=== PATIENT | female | born 2000 | race Two or more races ===

== ENCOUNTER 2022-11-04 10:16 | Outpatient (REF) | payer OTHER, SELFPAY ==
[2022-11-04 14:17] LABS: MANUAL DIFF FLAG NO
[2022-11-04 14:30] LABS: Basophils Absolute Auto 0.1 X10*3/uL (0.0-0.2); Basophils Percent Auto 0.8 % (0-2); Eosinophils Absolute Auto 0.3 X10*3/uL (0.0-0.4); Eosinophils Percent Auto 4.8 % (0-4); Hematocrit 39.6 % (37.0-47.0); Hemoglobin 12.5 g/dl (12.0-16.0); Imm Gran Abs Auto 0.02 X10*3/uL (0.00-0.03); Imm Gran Pct Auto 0.3 % (0.0-0.4); Lymphocytes Absolute Auto 2.2 X10*3/uL (1.2-4.9); Lymphocytes Percent Auto 35.9 % (20-40); Mean Corpuscular HGB Conc 31.6 g/dl (31.0-35.0); Mean Corpuscular Hemoglobin 28.9 pg (27.0-33.0); Mean Corpuscular Volume 91.5 fL (80.0-98.0); Mean Platelet Volume 12.3 fL (9.4-12.3); Monocytes Absolute Auto 0.6 X10*3/uL (0.1-1.2); Monocytes Percent Auto 9.7 % (2-11); Neutrophils Percent Auto 48.5 % (45-73); Platelet Count 253 X10*3/uL (160-400); Red Blood Count 4.33 X10*6/uL (4.20-5.50); Red Cell Distribution Width 12.5 % (11.0-16.0); White Blood Count 6.1 X10*3/uL (4.8-10.8)
[2022-11-04 14:54] LABS: Alanine Aminotransferase 15 U/L (0-31); Aspartate Amino Transferase 14 U/L (5-31); Blood Urea Nitrogen 8 mg/dL (9-16); Estimated Glomerular Filt Rate > 60
[2022-11-04 15:24] LABS: Erythrocyte Sedimentation Rate 5 MM/HR (0-20)
== END 2022-11-04 10:17 | disposition home or self-care (01) ==
LOC: HO.WFDLDS 10:16
PROVIDERS: Visit Provider Pediatrics Pediatric Rheumatology
DX: M08.3 Juvenile rheumatoid polyarthritis (seronegative) (principal)
CPT/HCPCS: 36415; 82565; 84450; 84460; 84520; 85025; 85652

== ENCOUNTER 2024-09-29 09:56 | Outpatient (AMB) | payer OTHER, SELFPAY ==
--- NOTE | 2024-09-29 10:01 | A.OFFPC_ITS ---
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 Rheumatoid arthritis-On tylenol as needed. Following with Dr Bourgeois in [place] Decreased appetite. Did just have GI illness last week. Has lost 20 pounds recently, unintentional 10 pounds with recent GI bug. Admits to few month history of decreased appetite. Does endorse some mild depressive symptoms and would be interested in SSRI Needs refill of OCP until sees offshore diver ROS see HPI PHYSICAL EXAM: GENERAL: Alert and oriented x 3. NAD EYES: EOMI. Anicteric. HENT: Moist mucous membranes. No scleral icterus. No cervical lymphadenopathy. LUNGS: Clear to auscultation bilaterally. CARDIOVASCULAR: Regular rate and rhythm. No murmur. No JVD. ABDOMEN: Soft, non-tender +bs EXTREMITIES: No edema. Non-tender. SKIN: No rashes or lesions. Warm. NEUROLOGIC: No focal neurological deficits. CN II-XII grossly intact PSYCHIATRIC: Cooperative. Appropriate mood and affect [facility] [place] Medical History Selective mutism Arthritis Surgical History No pertinent past surgical history Family History Mother Mental health disorder Hypertension Asthma Father Mental health disorder Maternal Grandmother Diabetes Arthritis Paternal Grandmother Arthritis Social History Household Members: Family Housing: House Are you a primary infant caregiver to a significant other at home: No Do you presently have visiting nurse or other home services: No Alcohol intake: current Alcohol intake frequency: a few times a month Patient Tobacco Use Status: Never used Tobacco e-Cigarette/Vaping Use: Currently Using Second Hand Smoke Exposure: No service: No Current occupational status: employed Current occupation: food worker Cognitive needs: No Hearing needs: No Vision needs: Yes (wear glasses) Questionnaire PHQ-9 Over the last 2 weeks, how often have you been bothered by any of the following problems? 70665 - PHQ-9 Billing: Patient declined-do not bill Source: Developed by Drs. Saeed Crockett, Zandra Zaman, Harjit Fontaine and colleagues, with an educational sara from [employer]. Thrive Questionnaire Date Thrive assessed: 09/29/24 I am a: Patient What is your living situation today?: I have a steady place to live Within the past 12 months, did the food you bought not last and you didn't have the money to get more?: I choose not to answer this question Within the past 12 months, did you worry whether your food would run out before you got money to buy more?: I choose not to answer this question Do you have trouble paying for medicines?: No Do you have trouble getting transportation to medical appointments?: No Do you have trouble paying your heating and electricity bill?: No Do you have trouble taking care of your child, family member or friend?: No Do you have trouble with day-to-day activities such as bathing, preparing meals, shopping, managing finances, etc.?: I choose not to answer this question Are you currently unemployed and looking for a job?: No Are you interested in more education?: Yes THRIVE Score: 0 AUDIT C Alcohol Use Questionnaire (AUDIT-C) 1. How often do you have a drink containing alcohol?: Monthly or less 2. How many drinks containing alcohol do you have on a typical day when you are drinking?: 1 or 2 3. How often do you have six or more drinks on one occasion?: Never Total Score: 1 REBECCA-7 AMB Questionnaire REBECCA-7 Date REBECCA - 7 assessed: 12/27/24 Feeling nervous, anxious, or on edge: 2 = More than half the days Not being able to stop or control worryin = More than half the days Worrying too much about different things: 3 = Nearly every day Trouble relaxin = More than half the days Being so restless that it is hard to sit still: 1 = Several days Becoming easily annoyed or irritable: 3 = Nearly every day Feeling afraid as if something awful might happen: 2 = More than half the days Total REBECCA-7 score (0-4 normal; 5-9 mild; 10-14 moderate; 15-21 severe): 15 Source: Developed by Drs. Saeed Crockett, Zandra Zaman, Harjit Fontaine and colleagues, with an educational sara from [employer]. REBECCA-7 Assessment Billing REBECCA-7 Assessment Tool: REBECCA-7 Assessment 02534 Physical exam (Primary Care) Vital Signs: Last Vital Signs Pulse 87 09/29/24 10:10 Resp 12 09/29/24 10:10 BP 98/62 09/29/24 10:10 Pulse Ox 100 09/29/24 10:10 Oxygen Delivery Method Room Air 09/29/24 10:10 BMI result Body Mass Index 19.4 Tobacco/Smoking Status: Tobacco use Status Tobacco use date assessed 09/29/24 09/29/24 10:11 Patient Tobacco Use Status Never used Tobacco 09/29/24 10:11 e-Cigarette/Vaping Use Currently Using 09/29/24 10:11 Thrive Assessment: Date of Thrive Assessment Date Thrive assessed 09/29/24 09/29/24 10:03 Coding Level of Care Code New Pt Level 4 (89928) Complex EM visit Add On G2211 Diagnoses Encounter to establish care Z76.89 Current moderate episode of major depressive disorder without prior episode F32.1 Active/Remission status: currently active Depression Type: major depressive disorder Major depression episode severity: moderate Major depression recurrence: single episode Rheumatoid arthritis involving multiple sites with positive rheumatoid factor M05.79 Rheumatoid arthritis location: multiple sites Rheumatoid factor presence: with rheumatoid factor Additional Codes REBECCA-7 Assessment Billing - REBECCA-7 Assessment Tool: REBECCA-7 Assessment 22662 ([id number]) Assessment & Plan Assessment & Plan (1) Encounter to establish care: Code(s): Z76.89 - Persons encountering health services in other specified circumstances Category: Medical Plan: 23 year old to establish care. past medical, surgical, social and family history reviewed. Chart updated (2) Depression: Code(s): F32.A - Depression, unspecified Category: Medical Qualifiers: Active/Remission status: currently active Depression Type: major depressive disorder Major depression episode severity: moderate Major depression recurrence: single episode Qualified Code(s): F32.1 - Major depressive disorder, single episode, moderate Plan: start paxil given depression and weight loss (3) Rheumatoid arthritis: Code(s): M06.9 - Rheumatoid arthritis, unspecified Category: Medical Qualifiers: Rheumatoid arthritis location: multiple sites Rheumatoid factor presence: with rheumatoid factor Qualified Code(s): M05.79 - Rheumatoid arthritis with rheumatoid factor of multiple sites without organ or systems involvement Plan: continue follow up with rheumatology Orders: Orders HCG Quantitative 09/29/24 F32.A - Depression, unspecified, M06.9 - Rheumatoid arthritis, unspecified, R63.4 - Abnormal weight loss Complete Blood Count Auto Diff 09/29/24 F32.A - Depression, unspecified, M06.9 - Rheumatoid arthritis, unspecified, R63.4 - Abnormal weight loss Comprehensive Met. Panel 09/29/24 F32.A - Depression, unspecified, M06.9 - Rheumatoid arthritis, unspecified, R63.4 - Abnormal weight loss TSH reflex Free T4 09/29/24 F32.A - Depression, unspecified, M06.9 - Rheumatoid arthritis, unspecified, R63.4 - Abnormal weight loss Hemoglobin A1c 09/29/24 F32.A - Depression, unspecified, M06.9 - Rheumatoid arthritis, unspecified, R63.4 - Abnormal weight loss Medications: New paroxetine HCl (Paxil) 10 mg PO DAILY 90 tabs 3RF norgestimate-ethinyl estradiol 0.25-35 mg-mcg (Sprintec (28)) 1 tab PO DAILY 84 tabs 3RF
[2024-09-29 10:10] VITALS: BP 98/62; PULSE 87; RESP 12; O2SAT 100; BMI 19.4
== END 2024-09-29 10:33 | disposition home or self-care (01) ==
PROVIDERS: PCP Internal Medicine; Visit Provider Internal Medicine
DX: Z76.89 Persons encountering health services in other specified circumstances (principal); F32.1 Major depressive disorder, single episode, moderate; M05.79 Rheumatoid arthritis with rheumatoid factor of multiple sites without organ or systems involvement

== ENCOUNTER → 2024-09-29 09:56 | Outpatient (BNVA) | payer OTHER, SELFPAY | PROVIDERS: PCP Internal Medicine; Visit Provider Internal Medicine | DX: Z76.89 Persons encountering health services in other specified circumstances (principal); F32.1 Major depressive disorder, single episode, moderate; M05.79 Rheumatoid arthritis with rheumatoid factor of multiple sites without organ or systems involvement; R63.0 Anorexia | CPT/HCPCS: 96127; 99202 ==

== ENCOUNTER 2024-09-29 10:52 | Outpatient (REF) | payer OTHER, SELFPAY ==
--- OUTSIDE RECORDS SUMMARY | 2024-09-29 10:54 | XMS_ITS ---
Author Name [facility] Organization Unknown History of Medication Use Medication Directions Dispensed Refills Start Date End Date Status ondansetron (ZOFRAN-ODT) 4 MG disintegrating tablet Take 4 mg by mouth 4 active ibuprofen (MOTRIN) 200 MG tablet Take 400 mg by mouth 4 active acetaminophen 325 mg Capsule Take 650 mg by mouth 4 active EPINEPHrine (EPIPEN) 0.3 mg/0.3 mL injection INJECT CONTENTS OF 1 PEN NEEDED FOR ALLERGIC REACTION 3 active famotidine (PEPCID) 10 MG tablet TAKE 1 TABLET BY MOUTH TWICE DAILY 3 aborted escitalopram oxalate (LEXAPRO) 20 MG tablet Take 20 mg by mouth 3 active escitalopram oxalate (LEXAPRO) 10 MG tablet Take 10 mg by mouth daily 3 aborted famotidine (PEPCID) 10 MG tablet Take 10 mg by mouth 3 aborted cephalexin (KEFLEX) 500 MG capsule TAKE 1 CAPSULE BY MOUTH 4 TIMES DAILY FOR 7 DAYS 4 aborted escitalopram oxalate (LEXAPRO) 10 MG tablet Take 10 mg by mouth daily 3 active UNKNOWN TO PATIENT 2 days ago started a n anti-depressant - forgot the name. 3 aborted norgestimate-ethin yl estradioL (ORTHO TRI-CYCLEN,TRI-SPR INTEC) 0.18/0.215/0.25 mg-35 mcg (28) per tablet Take 1 tablet by mouth 3 aborted loratadine (CLARITIN) 10 mg tablet Take 10 mg by mouth 3 aborted EPINEPHrine (EPIPEN) 0.3 mg/0.3 mL injection Inject 0.3 mg into the muscle 3 aborted TRI-SPRINTEC, 28, 0.18/0.215/0.25 mg-35 mcg (28) per tablet Take 1 tablet by mouth daily 2 active EPINEPHrine (EPIPEN) 0.3 mg/0.3 mL injection Inject 0.3 mg into the muscle 3 aborted naproxen (NAPROSYN) 375 MG tablet Take 1 tablet (375 mg) by mouth 2 (two) times daily with meals 4 active lidocaine 10 mg/mL (1 %) injection 2 mL 2 mL (0.0334 mL/kg), Subcutaneous, Once, On [facility] 07/30/22 at 1600, For 1 doseHIGH ALERT MEDICATIONRadiology 2 completed ketoconazole (NIZORAL) 2 % shampoo USE TOPICALLY TO AFFECTED AREA(S) DAILY NEEDED FOR 3 DAYS. CAN RE START IF RASH RECURS 2 aborted naproxen sodium (ANAPROX) 220 MG tablet Take 220 mg by mouth as needed 2 active SPRINTEC, 28, 0.25-35 mg-mcg per tablet Take 1 tablet by mouth daily 3 aborted acetaminophen (TYLENOL) 325 MG tablet Take 325 mg by mouth every 6 (six) hours as needed for Pain 2 active TRI-SPRINTEC, 28, 0.18/0.215/0.25 mg-35 mcg (28) per tablet Take 1 tablet by mouth daily 3 aborted naproxen (NAPROSYN) 375 MG tablet Take 1 tablet (375 mg) by mouth 2 (two) times daily with meals 4 active lidocaine 10 mg/mL (1 %) injection 2 mL 2 mL (0.0334 mL/kg), Subcutaneous, Once, On [facility] 07/30/22 at 1600, For 1 doseHIGH ALERT MEDICATIONRadiology 2 completed ketoconazole (NIZORAL) 2 % shampoo USE TOPICALLY TO AFFECTED AREA(S) DAILY NEEDED FOR 3 DAYS. CAN RE START IF RASH RECURS 2 aborted ADALIMUMAB 40 mg/0.4 mL pen INJECT 40 MG SUBCUTANEOUSLY EVERY 14 DAYS 2 active ADALIMUMAB 40 mg/0.4 mL pen INJECT 40 MG SUBCUTANEOUSLY EVERY 14 DAYS 3 active norgestimate-ethin yl estradioL (ORTHO TRI-CYCLEN,TRI-SPR INTEC) 0.18/0.215/0.25 mg-35 mcg (28) per tablet Take 1 tablet by mouth 3 aborted loratadine (CLARITIN REDITABS) 10 mg dissolvable tablet Take 10 mg by mouth 3 active EPINEPHrine (EPIPEN) 0.3 mg/0.3 mL injection INJECT CONTENTS OF 1 PEN NEEDED FOR ALLERGIC REACTION 3 active fluconazole (DIFLUCAN) 150 MG tablet Take 150 mg by mouth 3 aborted loratadine (CLARITIN REDITABS) 10 mg dissolvable tablet Take 10 mg by mouth 3 active triamcinolone hexacetonide (ARISTOSPAN) injection 40 mg 40 mg (0.655 mg/kg), Intra-articular, Once, On [facility] 07/30/22 at 1430, For 1 doseSahke Well before useProcedural Services 2 completed SPRINTEC, 28, 0.25-35 mg-mcg per tablet Take 1 tablet by mouth daily 3 active TRI-SPRINTEC, 28, 0.18/0.215/0.25 mg-35 mcg (28) per tablet TAKE 1 TABLET BY MOUTH ONCE DAILY 2 active fluticasone propionate (FLONASE) 50 mcg/actuation topical by Nasal route 3 aborted bupivacaine PF (MARCAINE) 0.5 % (5 mg/mL) injection 2 mL 2 mL (0.0334 mL/kg), Intra-articular, Once, On [facility] 07/30/22 at 1600, For 1 dose, Radiology 2 completed escitalopram oxalate (LEXAPRO) 5 MG tablet Take 5 mg by mouth daily 3 aborted naproxen (NAPROSYN) 500 MG tablet Take 1 tablet (500 mg) by mouth 2 (two) times daily with meals 2 active fluticasone propionate (FLONASE) 50 mcg/actuation nasal spray USE 1 SPRAY(S) IN EACH NOSTRIL TWICE DAILY 3 active ondansetron (ZOFRAN-ODT) 4 MG disintegrating tablet DISSOLVE 1 TABLET IN MOUTH EVERY 8 HOURS NEEDED FOR NAUSEA AND VOMITING FOR 3 DAYS 4 active adalimumab citrate-free (HUMIRA CF) 40 mg/0.4 mL pen Inject 0.4 mLs (40 mg) into the skin every 14 (fourteen) days 2 active acetaminophen (TYLENOL) 325 MG tablet Take 325 mg by mouth every 6 (six) hours as needed for Pain 3 active naproxen (NAPROSYN) 375 MG tablet Take 1 tablet (375 mg) by mouth 2 (two) times daily with meals 2 active loratadine (CLARITIN) 10 mg tablet Take 10 mg by mouth daily 3 aborted escitalopram oxalate (LEXAPRO) 5 MG tablet Take 5 mg by mouth daily 3 active Problems Problem Status Onset Date Problem Type Date of Resolution Source 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
[2024-09-29 14:15] LABS: MANUAL DIFF FLAG NO
[2024-09-29 14:20] LABS: Basophils Percent Auto 0.6 % (0-2); Eosinophils Absolute Auto 0.1 X10*3/uL (0.0-0.4); Eosinophils Percent Auto 1.5 % (0-4); Hematocrit 38.9 % (37.0-47.0); Hemoglobin 12.5 g/dl (12.0-16.0); Imm Gran Abs Auto 0.01 X10*3/uL (0.00-0.03); Imm Gran Pct Auto 0.2 % (0.0-0.4); Lymphocytes Absolute Auto 1.7 X10*3/uL (1.2-4.9); Lymphocytes Percent Auto 32.3 % (20-40); Mean Corpuscular HGB Conc 32.1 g/dl (31.0-35.0); Mean Corpuscular Hemoglobin 29.3 pg (27.0-33.0); Mean Corpuscular Volume 91.1 fL (80.0-98.0); Mean Platelet Volume 11.4 fL (9.4-12.3); Monocytes Absolute Auto 0.4 X10*3/uL (0.1-1.2); Monocytes Percent Auto 7.5 % (2-11); Neutrophils Percent Auto 57.9 % (45-73); Platelet Count 243 X10*3/uL (160-400); Red Blood Count 4.27 X10*6/uL (4.20-5.50); Red Cell Distribution Width 12.4 % (11.0-16.0); White Blood Count 5.2 X10*3/uL (4.8-10.8)
[2024-09-29 14:35] LABS: Estimated Average Glucose 91 mg/dL; Hemoglobin A1C 92.5061 umol/L; Hemoglobin A1c % 4.8 % (<6.0); Total Hemoglobin (HGBA1C) 3162.6898 umol/L
[2024-09-29 14:40] LABS: Alanine Aminotransferase 12 U/L (0-31); Albumin Level 4.1 g/dL (3.5-5.0); Alkaline Phosphatase 37 U/L (39-117); Anion Gap 11 (12-20); Aspartate Amino Transferase 21 U/L (5-31); Bilirubin Total 0.3 mg/dL (0.0-1.0); Blood Urea Nitrogen 8 mg/dL (9-16); Calcium 8.9 mg/dL (8.4-10.2); Carbon Dioxide 23 mmol/L (22-29); Chloride 107 mmol/L (96-108); Estimated Glomerular Filt Rate > 60; Glucose Random 95 mg/dL (60-115); Potassium 3.8 mmol/L (3.3-5.1); Sodium 137 mmol/L (135-145); Total Protein 7.2 g/dL (6.5-8.0)
[2024-09-29 15:04] LABS: HCG Quantitative < 2 mIU/mL; TSH reflex Free T4 1.73 uIU/mL (0.32-4.0)
== END 2024-09-29 10:53 | disposition home or self-care (01) ==
LOC: HO.WFDLDS 10:52
PROVIDERS: Visit Provider Internal Medicine
DX: R63.4 Abnormal weight loss (principal); M06.9 Rheumatoid arthritis, unspecified; F32.A Depression, unspecified
CPT/HCPCS: 36415; 80053; 83036; 84443; 84702; 85025

== ENCOUNTER 2024-10-27 15:41 | Outpatient (AMB) | payer OTHER, SELFPAY ==
--- NOTE | 2024-10-27 15:44 | A.OFFPC_ITS ---
Vital Signs 10/27/24 15:49 Height 5 ft 4 in Weight 106 lb BMI 18.2 BP 117/73 Blood Pressure Location Rt brachial Position Sitting Pulse 94 Pulse Source Pulse Oximeter Pulse Oximetry (%) 97 Oxygen Delivery Method Room Air Intake Visit Reasons: follow up paxil Intake Note: Follow up paxil Media Relations Manager Required: No Accompanied by: Significant Other Allergies No Known Allergies Allergy (Verified 10/27/24 15:48) Tobacco use date assessed: 10/27/24 Dental Screening Dental Screen Date: 09/29/24 HPI HPI Comments History of Present Illness Details 23 year old female with a past medical h istory of selective mutism, weight loss, rheumatoid arthritis presenting for follow up Patient reports -continued weight loss. She was placed o n paxil 10mg last visit which she tolerated well however she lost another 7 pounds. Tells me she was 130 pounds in August. Just reports no appetite. Sometimes has constipation but ongoing. No abdominal pain, reflux, heartburn, dyspepsia. No recent travel. Tells me 1-2 per year has a period of about one week where she has nausea and vomiting -she does endorse ongoing depression. 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 She thinks she is autistic Rheumatoid arthritis-On tylenol as needed. Following with Dr Bourgeois in [facility] Decreased appetite. Did just have GI illness last week. Has lost 20 pounds recently, unintentional 10 pounds with recent GI bug. Admits to few month history of decreased appetite. Does endorse some mild depressive symptoms and would be interested in SSRI ROS see HPI PHYSICAL EXAM: GENERAL: Alert and oriented x 3. NAD EYES: EOMI. Anicteric. HENT: Moist mucous membranes. No scleral icterus. No cervical lymphadenopathy. LUNGS: Clear to auscultation bilaterally. CARDIOVASCULAR: Regular rate and rhythm. No murmur. No JVD. ABDOMEN: Soft, non-tender +bs EXTREMITIES: No edema. Non-tender. SKIN: No rashes or lesions. Warm. NEUROLOGIC: No focal neurological deficits. CN II-XII grossly intact PSYCHIATRIC: Shy, anxious [facility] Medical History (Updated 10/27/24 @ 16:06 by Velia Jordan MD) Selective mutism Arthritis Surgical History No pertinent past surgical history Family History Mother Mental health disorder Hypertension Asthma Father Mental health disorder Maternal Grandmother Diabetes Arthritis Paternal Grandmother Arthritis Social History Household Members: Family Both parents involved: Yes Caregiver staying overnight: No Housing: House Are you a primary field care advocate to a significant other at home: No Do you presently have visiting nurse or other home services: No 75 years or older and lives alone: No Alcohol intake: current Alcohol intake frequency: a few times a month Patient Tobacco Use Status: Never used Tobacco e-Cigarette/Vaping Use: Currently Using Second Hand Smoke Exposure: No service: No Current occupational status: employed Current occupation: food worker Cognitive needs: No Hearing needs: No Vision needs: Yes (wear glasses) Questionnaire PHQ-9 Over the last 2 weeks, how often have you been bothered by any of the following problems? 1. Little interest or pleasure in doing things: more than half the days 2. Feeling down, depressed, or hopeless: several days 3. Trouble falling or staying asleep, or sleeping too much: several days 4. Feeling tired or having little energy: more than half the days 5. Poor appetite or overeating: more than half the days 6. Feeling bad about yourself - or that you are a failure or have let yourself or your family down: several days 7. Trouble concentrating on things, such as reading the newspaper or watching television: several days 8. Moving or speaking so slowly that other people could have noticed. Or the opposite - being so fidgety or restless that you have been moving around a lot more than usual: several days 9. Thoughts that you would be better off or of hurting yourself in some way: several days Total score: 12 Source: Developed by Drs. Saeed Crockett, Zandra Zaman, Harjit Fontaine and colleagues, with an educational sara from [employer]. Thrive Questionnaire Date Thrive assessed: 10/24/24 I am a: Patient What is your living situation today?: I have a steady place to live Within the past 12 months, did the food you bought not last and you didn't have the money to get more?: Never true Within the past 12 months, did you worry whether your food would run out before you got money to buy more?: Never true Do you have trouble paying for medicines?: No Do you have trouble getting transportation to medical appointments?: No Do you have trouble paying your heating and electricity bill?: No Do you have trouble taking care of your child, family member or friend?: No Do you have trouble with day-to-day activities such as bathing, preparing meals, shopping, managing finances, etc.?: No Are you currently unemployed and looking for a job?: No Are you interested in more education?: I choose not to answer this question Please select the resources that you would like help with: None Currently or been in a relationship where the following occur: I choose not to answer THRIVE Score: 0 AUDIT C Alcohol Use Questionnaire (AUDIT-C) 1. How often do you have a drink containing alcohol?: Monthly or less 2. How many drinks containing alcohol do you have on a typical day when you are drinking?: 1 or 2 3. How often do you have six or more drinks on one occasion?: Never Total Score: 1 REBECCA-7 AMB Questionnaire REBECCA-7 Date REBECCA - 7 assessed: 09/29/24 Feeling nervous, anxious, or on edge: 2 = More than half the days Not being able to stop or control worryin = Several days Worrying too much about different things: 2 = More than half the days Trouble relaxin = More than half the days Being so restless that it is hard to sit still: 1 = Several days Becoming easily annoyed or irritable: 2 = More than half the days Feeling afraid as if something awful might happen: 1 = Several days Total REBECCA-7 score (0-4 normal; 5-9 mild; 10-14 moderate; 15-21 severe): 11 Source: Developed by Drs. Saeed Crockett, Zandra Zaman, Harjit Fontaine and colleagues, with an educational sara from [employer]. Physical exam (Primary Care) Vital Signs: Last Vital Signs Pulse 94 10/27/24 15:49 BP 117/73 10/27/24 15:49 Pulse Ox 97 10/27/24 15:49 Oxygen Delivery Method Room Air 10/27/24 15:49 BMI result Body Mass Index 18.2 Tobacco/Smoking Status: Tobacco use Status Tobacco use date assessed 10/27/24 10/27/24 15:54 Patient Tobacco Use Status Never used Tobacco 10/27/24 15:44 e-Cigarette/Vaping Use Currently Using 10/27/24 15:44 PHQ-9: PHQ-9 Score PHQ-9: Total score 12 10/30/24 09:24 Thrive Assessment: Date of Thrive Assessment Date Thrive assessed 10/24/24 10/27/24 15:44 Currently or been in a relationship where the following occur: I choose not to answer Coding Level of Care Code Est Pt Level 4 (98561) Diagnoses Selective mutism F94.0 Abnormal weight loss R63.4 Assessment & Plan Assessment & Plan (1) Selective mutism: Code(s): F94.0 - Selective mutism Category: Medical Plan: referred for BH (2) Abnormal weight loss: Code(s): R63.4 - Abnormal weight loss Category: Medical Plan: Discussed possibly secondary to psychiatric issues however it is significant and warrants further work up. CT chest abd pelvis ordered referral to GI Increase paxil. Add remeron Orders: Orders CT chest wo IV con 10/27/24 R63.0 - Anorexia, R63.4 - Abnormal weight loss CT abdomen pelvis wo IV con 10/27/24 R63.0 - Anorexia, R63.4 - Abnormal weight loss Referrals Gastroenterology Referral R63.0 - Anorexia, R63.4 - Abnormal weight loss Behavioral Health Referral F32.1 - Major depressive disorder, single episode, moderate, F94.0 - Selective mutism Medications: New paroxetine HCl 20 mg PO DAILY 90 tabs 3RF fluconazole may repeat second dose 72 hrs after first dose if symptoms persist 150 mg PO Q3D PRN 6 tabs 3RF yeast infection 2 doses mirtazapine 15 mg PO BEDTIME 90 tabs 3RF Discontinued paroxetine HCl (Paxil) Discontinued Reason: Doctor's Order 10 mg PO DAILY 90 tabs 3RF
[2024-10-27 15:49] VITALS: BP 117/73; PULSE 94; O2SAT 97; BMI 18.2
--- OUTSIDE RECORDS SUMMARY | 2024-10-27 16:33 | XMS_ITS | Clinical Summary ---
Author Organization [facility] Address [address] [place] [address] Care Team Providers Care Composite Worker Name Role Phone Self, Referred Primary Care Provider Vashti Flores BYPRODUCT ENGINEER Unavailable [phone] Source Comments Please note that some or all of the patient's information could have additional privacy protections. State laws allow health care providers to render certain types of treatment to minors without parental consent. Please do not assume that this information can be shared solely by obtaining just the consent of the patient's parent/guardian. Please determine if all or part of the patient's care was rendered without parent/guardian involvement. And, if so, obtain the minor's consent prior to disclosure.[facility] Allergies No known active allergies Medications EPINEPHrine (EPIPEN) 0.3 mg/0.3 mL injection 3 Active fluticasone propionate (FLONASE) 50 mcg/actuation nasal spray 3 Active SPRINTEC, 28, 0.25-35 mg-mcg per tablet Take 1 tablet by mouth daily 3 Active acetaminophen 325 mg Capsule Take 650 mg by mouth 4 Active ondansetron (ZOFRAN-ODT) 4 MG disintegrating tablet Take 4 mg by mouth 4 Active ibuprofen (MOTRIN) 200 MG tablet Take 400 mg by mouth 4 Active Active Problems Patient Care Coordination No te Formatting of this note migh t be different from the original. Business Taxes Specialist: Vashti Will LCSW Referred by: [facility] on 01/10/24. 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 Not on file 06/18/2023 Share good news about positive changes: Not on f ile 06/18/2023 Comments No Sex and Gender Information Value Date Recorded Sex Assigned at Female 07/10/2021 1:43 PM EDT Legal Sex Female 7:29 AM EST Gender Identity Female 07/10/2021 1:43 PM EDT Sexual Orientation Bisexual 07/10/2021 1: 43 PM EDT Last Filed Vital Signs Vital Sign Reading Time Taken Comments Blood Pressure 118/65 09/07/2024 2:48 PM EST Pulse 95 09/07/2024 2:48 PM EST Temperature 36.1 ??C (97 ??F) 03/21/2024 4:25 PM EDT Respiratory Rate 16 07/30/2022 4:09 PM EDT Oxygen Saturation 99% 03/21/2024 4:25 PM EDT Inhaled Oxygen Concentration - - Weight 52 kg (114 lb 10.2 oz) 09/07/2024 2:48 PM EST Height 164 cm (5' 4.57 ) 09/07/2024 2:48 PM EST Body Mass Index 19.33 09/07/2024 2:48 PM EST Plan of Treatment Upcoming Encounters Date Type Department Care Team (Late st Contact Info) Description 03/08/2025 2:40 PM EDT Office Visit [facility], Department of Rheumatology, [place] [address] [place] [address] Gail Bourgeois MD [address] [place] [address] Health Maintenance Due Date Last Done Comments DTaP/TDAP/TD VACCINES (1 - Tdap) 2008 ADOLESCENT HIV SCREENING 2014 COVID-19 Vaccine ( season) 2024 03/12/2021, 02/19/2021 INFLUENZA (#1) 2024 NIRSEVIMAB VACCINES UNDER 8 MONTHS Aged Out No longer eligible b ased on patient's age to complete this topic Insurance [facility] [employer] Care Teams Composite Worker Relationship Specialty Start Date End Date Self, Referred [address] [place] [address] PCP - General 12/10/22 Vashti Will LCSW [address] [place] [address] Family Support Clinician Behavioral Health 01/12/24
--- OUTSIDE RECORDS SUMMARY | 2024-10-27 16:33 | XMS_ITS | Referral Summary ---
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 Sas Programmer: Vashti Will LCSW Referred by: [facility] on 01/10/24. No known active problems Social History Tobacco Use Types Packs/Day Years [...] Description 03/08/2025 2:40 PM EDT Office Visit [facility], Department of Rheumatology, [place] [address] [place] [address] Gail Bourgeois MD [address] [place] [address] Insurance [facility] PL[facility] Care Teams Coin Teller Relationship Specialty Start Date End Date Self, Referred [address] [place] [address] PCP - General 12/10/22 Vashti Will LCSW [address] [place] [address] Family Support Clinician Behavioral Health 01/12/24
== END 2024-10-27 16:17 | disposition home or self-care (01) ==
PROVIDERS: PCP Internal Medicine; Visit Provider Internal Medicine
DX: F94.0 Selective mutism (principal); R63.4 Abnormal weight loss

== ENCOUNTER → 2024-10-27 15:41 | Outpatient (BNVA) | payer OTHER, SELFPAY | PROVIDERS: PCP Internal Medicine; Visit Provider Internal Medicine | DX: F94.0 Selective mutism (principal); R63.4 Abnormal weight loss; M06.9 Rheumatoid arthritis, unspecified | CPT/HCPCS: 99212 ==

== ENCOUNTER 2024-12-08 15:36 | Outpatient (AMB) | payer OTHER, SELFPAY ==
--- NOTE | 2024-12-08 15:45 | MHC.PC.OV ---
Vital Signs 12/08/24 15:49 Height 5 ft 4 in Weight 132 lb 8 oz BMI 22.7 BP 94/64 Blood Pressure Location Rt brachial Position Sitting Respiration 12 Pulse 80 Pulse Source Pulse Oximeter Pulse Oximetry (%) 99 Oxygen Delivery Method Room Air Intake Visit Reasons: follow up depression, weight loss Intake Note: Follow up depression and weight loss Health Promotion Educator Required: No Allergies No Known Allergies Allergy (Verified 12/08/24 15:45) Medication List - Last Reconciled 12/11/24 by Velia Jordan MD mirtazapine 15 mg PO BEDTIME norgestimate-ethinyl estradiol 0.25-35 mg-mcg (Sprintec (28)) 1 tab PO DAILY paroxetine HCl 20 mg PO DAILY Tobacco use date assessed: 10/27/24 Dental Screening Dental Screen Date: 09/29/24 HPI HPI Comments History of Present Illness Details 23 year old female with a past medical history of selective mutism, weight loss, rheumatoid arthritis presenting for follow up Patient has been able to gain back the 25 pounds lost since August. She is doing well on paxil and remeron. referral is pending. Upcoming GI consult. She does have chronically decreased appetite, dyspepsia. Sometimes has constipation but ongoing. No abdominal pain, reflux, heartburn, dyspepsia. No recent travel. Tells me 1-2 per year has a period of about one week where she has nausea and vomiting BH: Referred. she does endorse ongoing depression. 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 She thinks she is autistic Rheumatoid arthritis-On tylenol as needed. Following with Dr Bourgeois in [place] [facility] see HPI PHYSICAL EXAM: GENERAL: Alert and oriented x 3. NAD EYES: EOMI. Anicteric. HENT: Moist mucous membranes. No scleral icterus. No cervical lymphadenopathy. LUNGS: Clear to auscultation bilaterally. CARDIOVASCULAR: Regular rate and rhythm. No murmur. No JVD. ABDOMEN: Soft, non-tender +bs EXTREMITIES: No edema. Non-tender. SKIN: No rashes or lesions. Warm. NEUROLOGIC: No focal neurological deficits. CN II-XII grossly intact PSYCHIATRIC: Shy, anxious [facility] Medical History Selective mutism Arthritis Surgical History No pertinent past surgical history Family History Mother Mental health disorder Hypertension Asthma Father Mental health disorder Maternal Grandmother Diabetes Arthritis Paternal Grandmother Arthritis Social History Household Members: Family Both parents involved: Yes Caregiver staying overnight: No Housing: House Are you a primary medicare specialist to a significant other at home: No Do you presently have visiting nurse or other home services: No 75 years or older and lives alone: No Alcohol intake: current Alcohol intake frequency: a few times a month Patient Tobacco Use Status: Never used Tobacco e-Cigarette/Vaping Use: Currently Using Second Hand Smoke Exposure: No service: No Current occupational status: employed Current occupation: food worker Cognitive needs: No Hearing needs: No Vision needs: Yes (wear glasses) Questionnaire PHQ-9 Over the last 2 weeks, how often have you been bothered by any of the following problems? 1. Little interest or pleasure in doing things: more than half the days 2. Feeling down, depressed, or hopeless: more than half the days 3. Trouble falling or staying asleep, or sleeping too much: more than half the days 4. Feeling tired or having little energy: more than half the days 5. Poor appetite or overeating: more than half the days 6. Feeling bad about yourself - or that you are a failure or have let yourself or your family down: more than half the days 7. Trouble concentrating on things, such as reading the newspaper or watching television: more than half the days 8. Moving or speaking so slowly that other people could have noticed. Or the opposite - being so fidgety or restless that you have been moving around a lot more than usual: several days 9. Thoughts that you would be better off or of hurting yourself in some way: several days Total score: 16 Depression Screening Interpretation: Positive Depression Screening Follow-up: Existing condition and Community Mental Health Worker F/U Depression Screening Done: Yes 23420 - PHQ-9 Billing: Yes Source: Developed by Drs. Saeed Crockett, Zandra Harjit Flood and colleagues, with an educational sara from [employer]. Thrive Questionnaire Date Thrive assessed: 12/08/24 I am a: Patient What is your living situation today?: I have a steady place to live Within the past 12 months, did the food you bought not last and you didn't have the money to get more?: Never true Within the past 12 months, did you worry whether your food would run out before you got money to buy more?: Never true Do you have trouble paying for medicines?: No Do you have trouble getting transportation to medical appointments?: No Do you have trouble paying your heating and electricity bill?: No Do you have trouble taking care of your child, family member or friend?: No Do you have trouble with day-to-day activities such as bathing, preparing meals, shopping, managing finances, etc.?: No Are you currently unemployed and looking for a job?: No Are you interested in more education?: I choose not to answer this question Please select the resources that you would like help with: None Currently or been in a relationship where the following occur: I choose not to answer THRIVE Score: 0 REBECCA-7 AMB Questionnaire REBECCA-7 Date REBECCA - 7 assessed: 09/29/24 Feeling nervous, anxious, or on edge: 1 = Several days Not being able to stop or control worryin = Several days Worrying too much about different things: 0 = Not at all Trouble relaxin = Not at all Being so restless that it is hard to sit still: 0 = Not at all Becoming easily annoyed or irritable: 1 = Several days Feeling afraid as if something awful might happen: 1 = Several days Total REBECCA-7 score (0-4 normal; 5-9 mild; 10-14 moderate; 15-21 severe): 4 Source: Developed by Drs. Saeed Crockett, Harjit Jones and colleagues, with an educational sara from [employer]. REBECCA-7 Assessment Billing REBECCA-7 Assessment Tool: REBECCA-7 Assessment 25407 Physical exam (Primary Care) Vital Signs: Last Vital Signs Pulse 80 12/08/24 15:49 Resp 12 12/08/24 15:49 BP 94/64 12/08/24 15:49 Pulse Ox 99 12/08/24 15:49 Oxygen Delivery Method Room Air 12/08/24 15:49 BMI result Body Mass Index 22.7 Tobacco/Smoking Status: Tobacco use Status Tobacco use date assessed 10/27/24 12/08/24 15:50 Patient Tobacco Use Status Never used Tobacco 12/08/24 15:50 e-Cigarette/Vaping Use Currently Using 12/08/24 15:50 PHQ-9: PHQ-9 Score PHQ-9: Total score 16 12/08/24 16:18 Depression Screening Interpretation: Positive Depression Screening Follow-up: Existing condition and Community Mental Health Worker F/U Thrive Assessment: Date of Thrive Assessment Date Thrive assessed 12/08/24 12/08/24 15:50 Currently or been in a relationship where the following occur: I choose not to answer Coding Level of Care Code Est Pt Level 4 (41491) Diagnoses Current moderate episode of major depressive disorder without prior episode F32.1 Depression Type: major depressive disorder Major depression recurrence: single episode Active/Remission status: currently active Major depression episode severity: moderate Rheumatoid arthritis involving multiple sites with positive rheumatoid factor M05.79 Rheumatoid arthritis location: multiple sites Rheumatoid factor presence: with rheumatoid factor Additional Codes REBECCA-7 Assessment Billing - REBECCA-7 Assessment Tool: REBECCA-7 Assessment 33239 ([id number]) PHQ-9 - 65222 - PHQ-9 Billing: Yes ([id number]) Assessment & Plan Assessment & Plan (1) Depression: Code(s): F32.A - Depression, unspecified Category: Medical Qualifiers: Depression Type: major depressive disorder Major depression recurrence: single episode Active/Remission status: currently active Major depression episode severity: moderate Qualified Code(s): F32.1 - Major depressive disorder, single episode, moderate Plan: Improved mood, anxiety and appetite on paxil. Difficult to fully assess due to selective mutism. She has been able to regain lost weight. She has BH referral made-gave her the number to call back (2) Rheumatoid arthritis: Code(s): M06.9 - Rheumatoid arthritis, unspecified Category: Medical Qualifiers: Rheumatoid arthritis location: multiple sites Rheumatoid factor presence: with rheumatoid factor Qualified Code(s): M05.79 - Rheumatoid arthritis with rheumatoid factor of multiple sites without organ or systems involvement Plan: continue r/up rheumatology
[2024-12-08 15:49] VITALS: BP 94/64; PULSE 80; RESP 12; O2SAT 99; BMI 22.7
--- OUTSIDE RECORDS SUMMARY | 2024-12-08 17:04 | XMS_ITS | Clinical Summary ---
Author Organization [facility] Address [address] [place], [place] [id number] Care Team Providers Care Photographer Name Role Phone Self, Referred Primary Care Provider Vashti Flores TRANSFER CAR OPERATOR Unavailable [phone] Source Comments Please note that some or [...] so, obtain the minor's consent prior to disclosure.[facility] Allergies No known active allergies Medications EPINEPHrine (EPIPEN) 0.3 mg/0.3 mL injection 3 Active fluticasone propionate (FLONASE) 50 mcg/actuation nasal spray 3 Active SPRINTEC, 28, 0.25-35 mg-mcg per tablet Take 1 tablet by mouth daily 3 Active acetaminophen 325 mg Capsule Take 650 mg by mouth 4 Active ondansetron (ZOFRAN-ODT) 4 MG disintegrating tablet Take 4 mg by mouth 4 Active naproxen (NAPROSYN) 500 MG tabletIndications: 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 Fiscal Services Director: Vashti Will LCSW Referred by: [facility] on 01/10/24. No known active problems Encounters Date Type Department Care Team Description 11/27/2024 Telephone [facility], Department of Rheumatology, [address] [place] [address] Katina Hernadez RN Hand Pain from Last 3 Months Family History Medical [...] Description 03/08/2025 2:40 PM EDT Office Visit [facility], Department of Rheumatology, [place] [address] [place] [address] Gail Bourgeois MD [address] [place], [place] [id number] Health Maintenance Due Date Last Done Comments DTaP/TDAP/TD VACCINES (1 - Tdap) 2008 ADOLESCENT HIV SCREENING 2014 COVID-19 Vaccine ( season) 2024 03/12/2021, 02/19/2021 INFLUENZA (#1) 2024 NIRSEVIMAB VACCINES UNDER 8 MONTHS Aged Out No longer eligible b ased on patient's age to complete this topic Insurance [facility] [employer] Care Teams Photographer Relationship Specialty Start Date End Date Self, Referred [address] [place] [address] PCP - General 12/10/22 Vashti Will LCSW [address] [place] [address] Family Support Clinician Behavioral Health 01/12/24
--- OUTSIDE RECORDS SUMMARY | 2024-12-08 17:04 | XMS_ITS | Encounter Summary ---
Author Organization [facility] [address] [place] [address] Care Team Providers Care Grinding Operator Name Role Phone Self, Referred Primary Care Provider Vashti Flores DEPARTMENT TRAFFIC FREIGHT ROUTER Unavailable [phone] Reason for Visit * Reason Onset Date Comments Hand Pain 11/27/2024 Encounter Details Date Type Department Care Team (Late st Contact Info) Description 11/27/2024 Telephone [facility], Department of Rheumatology, [address] [address] Katina Hernadez RN [address] [place] [id number] Hand Pain Social History Tobacco Use Types Packs/Day Years Used Date Smoking Tobacco: Never Passive Smoke Exposure: Never Smokeless Tobacco: Never Alcohol Use Standard Drinks/Week Comments Never 0 [...] Orientation Bisexual 07/10/2021 1: 43 PM EDT documented as of this encounter Miscellaneous Notes * Telephone Encounter - Gerda John MD - 11/27/2024 3:01 PM EST Naproxen prescribed for presumed active arthritis. 10 mg/kg BID, maximum 500 mg/dose Last weight 52 kg 500 mg BID sent in Should not take other NSAIDs while on this medication. * Telephone Encounter - Katina Hernadez RN - 11/27/2024 1:39 PM EST L hand, middle finger swollen, can't make a fist. Feels similar to how knee felt when arthritis wasactive. Has been taking aleve here and there- helping some. Would like an Rx of Naproxen. I suggested she take it consistently for 10-14 days. She V/U that sheshould stop taking aleve when she starts the Rx NSAID. She knows to call if she is not improving after several days. I reminded her of outstanding labs and she stated she might do them later. 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
== END 2024-12-08 16:32 | disposition home or self-care (01) ==
PROVIDERS: PCP Internal Medicine; Visit Provider Internal Medicine
DX: F32.1 Major depressive disorder, single episode, moderate (principal); M05.79 Rheumatoid arthritis with rheumatoid factor of multiple sites without organ or systems involvement

== ENCOUNTER → 2024-12-08 15:36 | Outpatient (BNVA) | payer OTHER, SELFPAY | PROVIDERS: PCP Internal Medicine; Visit Provider Internal Medicine | DX: F32.1 Major depressive disorder, single episode, moderate (principal); M05.79 Rheumatoid arthritis with rheumatoid factor of multiple sites without organ or systems involvement | CPT/HCPCS: 96127; 99212 ==

== ENCOUNTER 2025-04-24 15:33 | Outpatient (AMB) | payer OTHER, SELFPAY ==
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
[2025-04-24 15:45] VITALS: BP 98/60; PULSE 80; RESP 12; TEMP 36.8; O2SAT 99
--- OUTSIDE RECORDS SUMMARY | 2025-04-24 16:23 | XMS_ITS ---
Author Name [facility] Organization Unknown History of Medication Use Medication Directions Dispensed Refills Start Date End Date Stat naproxen (NAPROSYN) 500 MG tablet Take 1 tablet (500 mg) by mouth 2 (two) times daily with meals 11/27/2024 active PARoxetine (PAXIL) 10 MG tablet Take 10 mg by mouth 09/29/2024 act damaso famotidine (PEPCID) 10 MG tablet TAKE 1 TABLET BY MOUTH TWICE DAILY 02/08/2023 4 active escitalopram oxalate (LEXAPRO) 10 MG tablet Take 10 mg by mouth daily 11/24/2022 4 aborted loratadine (CLARITIN REDITABS) 10 mg dissolvable tablet Take 10 mg by mouth 10/20/2022 03/09/20 2 4 active fluticasone propionate (FLONASE) 50 mcg/actuation nasal spray USE 1 SPRAY(S) IN EACH NOSTRIL TWICE DAILY 10/20/2022 4 active EPINEPHrine (EPIPEN) 0.3 mg/0.3 mL injection Inject 0.3 mg into the muscle 10/20/2022 3 aborted escitalopram oxalate (LEXAPRO) 5 MG tablet Take 5 mg by mouth daily 10/20/2022 3 aborted fluticasone propionate (FLONASE) 50 mcg/actuation nasal spray USE 1 SPRAY(S) IN EACH NOSTRIL TWICE DAILY 10/20/2022 3 active EPINEPHrine (EPIPEN) 0.3 mg/0.3 mL injection 10/20/2022 active norgestimate-ethiny l estradioL (ORTHO TRI-CYCLEN,TRI-SPRI NTEC) 0.18/0.215/0.25 mg-35 mcg (28) per tablet Take 1 tablet by mouth 09/21/2022 4 aborted norgestimate-ethiny l estradioL (ORTHO TRI-CYCLEN,TRI-SPRI NTEC) 0.18/0.215/0.25 mg-35 mcg (28) per tablet Take 1 tablet by mouth 09/21/2022 3 aborted naproxen (NAPROSYN) 500 MG tablet Take 1 tablet (500 mg) by mouth 2 (two) times daily with meals 07/07/2022 3 active triamcinolone hexacetonide (ARISTOSPAN) injection 40 mg 40 mg (0.655 mg/kg), Intra-articular, Once, On [facility] 07/30/22 at 1430, For 1 doseSahke Well before useProcedural Services 04/02/2022 2 completed TRI-SPRINTEC, 28, 0.18/0.215/0.25 mg-35 mcg (28) per tablet Take 1 tablet by mouth daily 12/16/2021 active ketoconazole (NIZORAL) 2 % shampoo USE TOPICALLY TO AFFECTED AREA(S) DAILY NEEDED FOR 3 DAYS. 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) [facility] ([facility] 12/26/2024 Ambulatory 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) [facility] ([facility] 09/07/2024 Ambulatory 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) [facility] ([facility] 03/21/2024 Ambulatory 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) [facility] ([facility] 03/09/2024 Ambulatory 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) [facility] ([facility] 01/06/2024 Ambulatory 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) [facility] ([facility] 12/06/2023 Ambulatory 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) [facility] ([facility] 07/08/2023 Ambulatory [facility] 12/11/2022 Ambulatory [facility] 2022 Ambulatory [facility] 08/03/2022 Ambulatory [facility] 08/03/2022 Ambulatory [facility] 07/09/2022 Ambulatory [facility] 07/09/2022 Ambulatory [facility] 06/10/2022 Ambulatory [facility] 04/08/2022 Ambulatory [facility] 04/06/2022 Ambulatory [facility] 03/09/2022 Ambulatory [facility] 02/16/2022 Ambulatory [facility] 01/13/2022 Ambulatory [facility] 07/24/2021 Ambulatory [facility] 07/21/2021 Ambulatory [facility] 07/13/2021 Care Team Organization Name Specialty Phone Email Start Date End Da te [facility] ([facility] RAFAELA BRANCH Primary Care [facility] Self,Referred Primary Care 07/08/202304/17 [facility] ([facility]) REFERRED SELF Primary Care 07/08/2023 [facility] Self,Referred Primary Care 12/11/2022 [facility] Branch,Rafaela Primary Care 08/05/2022
== END 2025-04-25 12:50 | disposition home or self-care (01) ==
LOC: HO.HMCFM 15:34
PROVIDERS: PCP Internal Medicine; Visit Provider Internal Medicine
DX: F94.0 Selective mutism (principal); V87.7XXD Person injured in collision between other specified motor vehicles (traffic), subsequent encounter; F32.1 Major depressive disorder, single episode, moderate; M54.2 Cervicalgia

== ENCOUNTER 2025-05-23 15:41 | Outpatient (REF) | payer OTHER, SELFPAY ==
[2025-05-23 17:24] LABS: MANUAL DIFF FLAG NO
[2025-05-23 17:43] LABS: Hematocrit 37.7 % (37.0-47.0); Hemoglobin 12.2 g/dl (12.0-16.0); Imm Gran Abs Auto 0.02 X10*3/uL (0.00-0.03); Imm Gran Pct Auto 0.3 % (0.0-0.4); Lymphocytes Absolute Auto 2.2 X10*3/uL (1.2-4.9); Mean Corpuscular HGB Conc 32.4 g/dl (31.0-35.0); Mean Corpuscular Hemoglobin 29.2 pg (27.0-33.0); Mean Corpuscular Volume 90.2 fL (80.0-98.0); NRBC Abs Auto 0.000 X10*3/uL (0.0-0.012); NRBC Pct Auto 0.0 /100WBC (0.0-0.2); Platelet Count 253 X10*3/uL (160-400); Red Blood Count 4.18 X10*6/uL (4.20-5.50); White Blood Count 6.7 X10*3/uL (4.8-10.8)
[2025-05-23 18:10] LABS: Alanine Aminotransferase 12 U/L (0-31); Albumin Level 4.3 g/dL (3.5-5.0); Alkaline Phosphatase 45 U/L (39-117); Anion Gap 11 (12-20); Aspartate Amino Transferase 20 U/L (5-31); Blood Urea Nitrogen 10 mg/dL (9-16); Calcium 8.9 mg/dL (8.4-10.2); Carbon Dioxide 26 mmol/L (22-29); Chloride 108 mmol/L (96-108); Estimated Glomerular Filt Rate > 60; Potassium 3.5 mmol/L (3.3-5.1); Sodium 141 mmol/L (135-145); Total Protein 7.3 g/dL (6.5-8.0)
[2025-05-25 15:03] LABS: TS Negative Control Passed; TS Panel A 0; TS Panel B 1; TS Positive Control Passed; TSpotTB Negative (Negative)
== END 2025-05-23 15:42 | disposition home or self-care (01) ==
LOC: HO.WFDLDS 15:41
PROVIDERS: Visit Provider Pediatrics Pediatric Rheumatology
DX: M08.3 Juvenile rheumatoid polyarthritis (seronegative) (principal); Z11.7 Encounter for testing for latent tuberculosis infection
CPT/HCPCS: 36415; 80053; 85025; 85652; 86431; 86481

== ENCOUNTER 2025-06-18 13:57 | Outpatient (AMB) | payer OTHER, SELFPAY ==
--- NOTE | 2025-06-18 14:00 | MHC.PC.OV ---
Vital Signs 06/18/25 14:05 Height 5 ft 4 in Weight 116 lb 4 oz BMI 20.0 BP 100/64 Blood Pressure Location Lt brachial Position Sitting Respiration 14 Pulse 85 Pulse Source Pulse Oximeter Pulse Oximetry (%) 99 Oxygen Delivery Method Room Air Intake Visit Reasons: Physical Intake Note: Physical Employee Relations Assistant Required: No Allergies No Known Allergies Allergy (Verified 06/18/25 14:04) Tobacco use date assessed: 06/18/25 Dental Screening Dental Screen Date: 04/24/25 HPI HPI Comments History of Present Illness Details 24 year old female with a past medical history of selective mutism, weight loss, rheumatoid arthritis presenting for CPE BH: Anxiety/depression/weight loss: Weight is fairly stable. She stopped both paxil and remeron. She does have chronically decreased appetite, dyspepsia-notes some interval improvement. She was referred to but did not go to GI. Sometimes has constipation but ongoing. No abdominal pain, reflux, heartburn, dyspepsia. No recent travel. Tells me 1-2 per year has a period of about one week where she has nausea and vomiting BH: Referred. Less depressive symptoms. 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 She thinks she is autistic Rheumatoid arthritis-On tylenol as needed. Following with Dr Bourgeois in [place] She is on Sprintec. She is sexually active. Has not been to sketch liner-referred today ROS see HPI PHYSICAL EXAM: GENERAL: Alert and oriented x 3. NAD EYES: EOMI. Anicteric. HENT: Moist mucous membranes. No scleral icterus. No cervical lymphadenopathy. LUNGS: Clear to auscultation bilaterally. CARDIOVASCULAR: Regular rate and rhythm. No murmur. No JVD. ABDOMEN: Soft, non-tender +bs MSK: Mild cervical muscle spasm EXTREMITIES: No edema. Non-tender. SKIN: No rashes or lesions. Warm. NEUROLOGIC: No focal neurological deficits. CN II-XII grossly intact PSYCHIATRIC: Shy, anxious [facility] Medical History Selective mutism Arthritis Surgical History No pertinent past surgical history Family History Mother Mental health disorder Hypertension Asthma Father Mental health disorder Maternal Grandmother Diabetes Arthritis Paternal Grandmother Arthritis Social History Household Members: Family Both parents involved: Yes Caregiver staying overnight: No Housing: House Are you a primary care administrative tech to a significant other at home: No Do you presently have visiting nurse or other home services: No 75 years or older and lives alone: No Alcohol intake: current Alcohol intake frequency: a few times a month Patient Tobacco Use Status: Never used Tobacco e-Cigarette/Vaping Use: Currently Using Second Hand Smoke Exposure: No service: No Current occupational status: employed Current occupation: food worker Cognitive needs: No Hearing needs: No Vision needs: Yes (wear glasses) Questionnaire Thrive Questionnaire Date Thrive assessed: 10/24/24 I am a: Patient What is your living situation today?: I have a steady place to live Within the past 12 months, did the food you bought not last and you didn't have the money to get more?: Never true Within the past 12 months, did you worry whether your food would run out before you got money to buy more?: Never true Do you have trouble paying for medicines?: No Do you have trouble getting transportation to medical appointments?: No Do you have trouble paying your heating and electricity bill?: No Do you have trouble taking care of your child, family member or friend?: No Do you have trouble with day-to-day activities such as bathing, preparing meals, shopping, managing finances, etc.?: No Are you currently unemployed and looking for a job?: No Are you interested in more education?: I choose not to answer this question Please select the resources that you would like help with: None Currently or been in a relationship where the following occur: I choose not to answer THRIVE Score: 0 REBECCA-7 AMB Questionnaire REBECCA-7 Date REBECCA - 7 assessed: 09/29/24 Source: Developed by Drs. Saeed Crockett, Zandra Zaman, Harjit Fontaine and colleagues, with an educational sara from [employer]. Physical exam (Primary Care) Vital Signs: Last Vital Signs Pulse 85 06/18/25 14:05 Resp 14 06/18/25 14:05 BP 100/64 06/18/25 14:05 Pulse Ox 99 06/18/25 14:05 Oxygen Delivery Method Room Air 06/18/25 14:05 BMI result Body Mass Index 20.0 Tobacco/Smoking Status: Tobacco use Status Tobacco use date assessed 06/18/25 06/18/25 14:06 Patient Tobacco Use Status Never used Tobacco 06/18/25 14:02 e-Cigarette/Vaping Use Currently Using 06/18/25 14:02 Thrive Assessment: Date of Thrive Assessment Date Thrive assessed 10/24/24 06/18/25 14:02 Currently or been in a relationship where the following occur: I choose not to answer Coding Level of Care Code Est Pt Prev Care 18-39y(11095) Diagnoses Physical exam Z00.00 Selective mutism F94.0 Rheumatoid arthritis involving multiple sites with positive rheumatoid factor M05.79 Rheumatoid arthritis location: multiple sites Rheumatoid factor presence: with rheumatoid factor Assessment & Plan Assessment & Plan (1) Physical exam: Code(s): Z00.00 - Encounter for general adult medical examination without abnormal findings (2) Selective mutism: Code(s): F94.0 - Selective mutism Category: Medical (3) Rheumatoid arthritis: Code(s): M06.9 - Rheumatoid arthritis, unspecified Category: Medical Qualifiers: Rheumatoid arthritis location: multiple sites Rheumatoid factor presence: with rheumatoid factor Qualified Code(s): M05.79 - Rheumatoid arthritis with rheumatoid factor of multiple sites without organ or systems involvement Plan CPE Interval history reviewed Preventive measures for age discussed Needs pap-referred to reforestation worker Labs ordered. Orders: Orders Lipid Panel 11 Months F32.1 - Major depressive disorder, single episode, moderate, R63.4 - Abnormal weight loss, Z13.220 - Encounter for screening for lipoid disorders, Z13.228 - Encounter for screening for other metabolic disorders Complete Blood Count Auto Diff 11 Months F32.1 - Major depressive disorder, single episode, moderate, R63.4 - Abnormal weight loss, Z13.220 - Encounter for screening for lipoid disorders, Z13.228 - Encounter for screening for other metabolic disorders Comprehensive Met. Panel 11 Months F32.1 - Major depressive disorder, single episode, moderate, R63.4 - Abnormal weight loss, Z13.220 - Encounter for screening for lipoid disorders, Z13.228 - Encounter for screening for other metabolic disorders Referrals BIZTALK ARCHITECT Referral Z12.4 - Encounter for screening for malignant neoplasm of cervix Medications: Discontinued paroxetine HCl Discontinued Reason: Patient no longer taking 20 mg PO DAILY 90 tabs 3RF mirtazapine Discontinued Reason: Doctor's Order 15 mg PO BEDTIME 90 tabs 3RF
[2025-06-18 14:05] VITALS: BP 100/64; PULSE 85; RESP 14; O2SAT 99
== END 2025-06-18 14:20 | disposition home or self-care (01) ==
LOC: HO.HMCFM 13:58
PROVIDERS: PCP Internal Medicine; Visit Provider Internal Medicine
DX: Z00.00 Encounter for general adult medical examination without abnormal findings (principal); F94.0 Selective mutism; M05.79 Rheumatoid arthritis with rheumatoid factor of multiple sites without organ or systems involvement

== ENCOUNTER → 2025-06-18 13:57 | Outpatient (BNVA) | payer OTHER, SELFPAY | PROVIDERS: PCP Internal Medicine; Visit Provider Internal Medicine | DX: Z00.00 Encounter for general adult medical examination without abnormal findings (principal); F94.0 Selective mutism; M05.79 Rheumatoid arthritis with rheumatoid factor of multiple sites without organ or systems involvement | CPT/HCPCS: 99395 ==